=== PATIENT | male | born 1950 | race Caucasian/White ===

== ENCOUNTER 2016-07-01 09:02 | Inpatient (IN) | payer OTHER, MEDICARE ==
[2016-07-01] VITALS (8 sets, daily range): BP systolic 152–215; BP diastolic 64–95; PULSE 63–85; RESP 16–20; TEMP 96.3–97.8; O2SAT 93–100
[~2016-07-01] VITALS: Ht 182.9 cm; Wt 72.0 kg
[2016-07-01] MEDS ORDERED: SODIUM CHLOR 0.9% 1000 ML INJ 1,000 ML IV SCH (09:07)
--- NOTE | 2016-07-01 09:07 | PD ---
HPI Chief Complaint: abdominal pain, vomiting Time Seen by Provider: 09:07 Travel History International Travel<30 days: No Contact w/Intl Traveler<30days: No History of Present Illness HPI 65-year-old male arrives with epigastric abdominal pain and vomiting for one half day. [place] for the same complaint. He vomited en route. He describes a tight,"knot" like sensation in the epigastrium. He has no history of bowel obstruction bowel surgery or GI disease that he is aware. No fever. Emesis is nonbloody. BM normal. PFSH Social History Tobacco Use: No Allergies-Medications (Allergen,Severity, Reaction): Coded Allergies: Sulfa (Verified Allergy, Unknown, Rash, 07/01/16) Reported Meds & Prescriptions Reported Meds & Active Scripts Active Reported Atorvastatin (Atorvastatin Calcium) 80 Mg Tab 80 Mg PO HS Levothyroxine (Levothyroxine Sodium) 125 Mcg Tab 125 Mcg PO DAILY Gabapentin 300 Mg Cap 300 Mg PO BID Furosemide 20 Mg Tab 20 Mg PO DAILY Aspir-81 (Aspirin) 81 Mg Tabdr 81 Mg PO DAILY Novolog Flexpen Inj (Insulin Aspart) 300 Unit/3 Ml Pen 8 Units SQ AC DINNER Novolog Flexpen Inj (Insulin Aspart) 300 Unit/3 Ml Pen 6 Units SQ AC LUNCH Novolog Flexpen Inj (Insulin Aspart) 300 Unit/3 Ml Pen 4 Units SQ AC BREAKFAST Dapsone 25 Mg Tab 25 Mg PO DAILY Cetirizine (Cetirizine HCl) 10 Mg Tab 10 Mg PO DAILY Dapsone 100 Mg Tab 100 Mg PO DAILY Review of Systems Except as stated in HPI: all other systems reviewed are Neg General / Constitutional: No: Fever Gastrointestinal: Positive: Nausea, Vomiting, Abdominal Pain, No: Diarrhea, Hematemesis, Hematochezia, Constipation Physical Exam Narrative GENERAL: 65 yo M, WNWD, NAD SKIN: Warm and dry. HEAD: Atraumatic. Normocephalic. EYES: Pupils equal and round. No scleral icterus. No injection or drainage. ENT: No nasal bleeding or discharge. Mucous membranes pink and moist. NECK: Trachea midline. No JVD. CARDIOVASCULAR: Regular rate and rhythm. RESPIRATORY: No accessory muscle use. Clear to auscultation. Breath sounds equal bilaterally. GASTROINTESTINAL: Soft. No focal TTP. MUSCULOSKELETAL: Extremities without clubbing, cyanosis, or edema. No obvious deformities. NEUROLOGICAL: Awake and alert. No obvious cranial nerve deficits. Motor grossly within normal limits. Five out of 5 muscle strength in the arms and legs. Normal speech. PSYCHIATRIC: Appropriate mood and affect; insight and judgment normal. Data Data Last Documented VS Vital Signs Date Time Temp Pulse Resp B/P Pulse Ox O2 Delivery O2 Flow Rate FiO2 07/01/16 09:30 72 18 176/77 07/01/16 09:07 97.8 Orders Complete Blood Count With Diff (07/01/16 09:07) Comprehensive Metabolic Panel (07/01/16 09:07) Lipase (07/01/16 09:07) Lactic Acid (07/01/16 09:07) Ct Abd/Pel W Iv Contrast(Rout) (07/01/16 09:07) Iv Access Insert/Monitor (07/01/16 09:07) Ecg Monitoring (07/01/16 09:07) Oximetry (07/01/16 09:07) Ondansetron Inj (Zofran Inj) (07/01/16 09:15) Sodium Chlor 0.9% 1000 Ml Inj (Ns 1000 M (07/01/16 09:07) Sodium Chloride 0.9% Flush (Ns Flush) (07/01/16 09:15) Hydromorphone Pf Inj (Dilaudid Pf Inj) (07/01/16 09:15) Al-Mag Hy-Si 40-40-4 Mg/Ml Liq (Mag-Al P (07/01/16 09:15) Lidocaine 2% Viscous (Xylocaine 2% Visco (07/01/16 09:15) Electrocardiogram (07/01/16 ) Iohexol 350 Inj (Omnipaque 350 Inj) (07/01/16 10:52) Hydromorphone Pf Inj (Dilaudid Pf Inj) (07/01/16 11:00) Us Abdomen Gallbladder (07/01/16 ) Piperacil-Tazo 3.375 Gm Premix (Zosyn 3. (07/01/16 11:15) Admit To Inpatient (07/01/16 ) Vital Signs (Adult) Q4H (07/01/16 11:23) Activity Bed Rest (07/01/16 11:23) Diet Npo (07/01/16 Lunch) Sodium Chlor 0.9% 1000 Ml Inj (Ns 1000 M (07/01/16 12:00) Sodium Chloride 0.9% Flush (Ns Flush) (07/01/16 11:30) Sodium Chloride 0.9% Flush (Ns Flush) (07/01/16 21:00) Acetaminophen (Tylenol) (07/01/16 12:00) Ondansetron Inj (Zofran Inj) (07/01/16 11:30) Scd Bilateral/Knee High GUERDA.BID (07/01/16 11:23) Luís Bilateral/Knee High GUERDA.QSHIFT (07/01/16 11:23) Naloxone Inj (Narcan Inj) (07/01/16 11:30) Inpatient Certification (07/01/16 ) Consult General Surgery (07/01/16 ) Piperacil-Tazo 3.375 Gm Premix (Zosyn 3. (07/01/16 17:00) Admit Order (Ed Use Only) (07/01/16 11:56) Labs Laboratory Tests Test 07/01/16 09:10 White Blood Count 8.7 TH/MM3 Red Blood Count 3.26 MIL/MM3 Hemoglobin 10.3 GM/DL Hematocrit 30.8 % Mean Corpuscular Volume 94.5 FL Mean Corpuscular Hemoglobin 31.5 PG Mean Corpuscular Hemoglobin 33.3 % Concent Red Cell Distribution Width 15.0 % Platelet Count 180 TH/MM3 Mean Platelet Volume 7.3 FL Neutrophils (%) (Auto) 88.6 % Lymphocytes (%) (Auto) 6.5 % Monocytes (%) (Auto) 4.2 % Eosinophils (%) (Auto) 0.3 % Basophils (%) (Auto) 0.4 % Neutrophils # (Auto) 7.7 TH/MM3 Lymphocytes # (Auto) 0.6 TH/MM3 Monocytes # (Auto) 0.4 TH/MM3 Eosinophils # (Auto) 0.0 TH/MM3 Basophils # (Auto) 0.0 TH/MM3 CBC Comment DIFF FINAL Differential Comment Sodium Level 141 MEQ/L Potassium Level 4.3 MEQ/L Chloride Level 106 MEQ/L Carbon Dioxide Level 26.6 MEQ/L Anion Gap 8 MEQ/L Blood Urea Nitrogen 31 MG/DL Creatinine 0.87 MG/DL Estimat Glomerular Filtration 88 ML/MIN Rate Random Glucose 211 MG/DL Lactic Acid Level 1.4 mmol/L Calcium Level 8.7 MG/DL Total Bilirubin 1.6 MG/DL Aspartate Amino Transf 25 U/L (AST/SGOT) Alanine Aminotransferase 27 U/L (ALT/SGPT) Alkaline Phosphatase 78 U/L Total Protein 6.5 GM/DL Albumin 3.9 GM/DL Lipase 65 U/L MDM Medical Decision Making Medical Screen Exam Complete: Yes Emergency Medical Condition: Yes Differential Diagnosis Constipation, Gastritis, Acute Cholecystitis, Biliary Colic, Pancreatitis, ANDERSON , Hepatitis, Bowel Obstruction, Cystitis, Mesenteric Ischemia, AAA, Appendicitis , Renal Stone/Hydronephrosis, GERD, perforated viscous Narrative Course 0953 pt resting comfortably; 74, 176/77 EKG: sinus, rate 80, LAFB CBC & BMP Diagram 07/01/16 09:10 Neutrophils 89% T bili 1.6 with LFTs othewise normal Lipase normal Last 24 hours Impressions Abdomen/Pelvis CT 07/01/16 0907 Signed Impressions: Service Date/Time: Friday, July 01, 2016 10:39 - CONCLUSION: 1. Gallbladder is dilated and contains wall thickening and cholelithiasis. Gallbladder sonogram may be warranted. 2. Mild intrahepatic biliary ductal dilatation. 3. Bilateral nonobstructing renal calculi. Thomas García MD 1105AM: Abd soft, c/o pain, 0.5mg Dilaudid ordered, Zosyn ordered, RUQ US ordered, case d/w Dr Bedolla who requests [facility] admission, he'll evaluate 1122AM: d/w Dr Martinez for [facility] 1215PM: resting comfortably on bed Diagnosis Primary Impression: Cholecystitis Admitting Information Admitting Physician Requests: Admit Gerry Main MD July 01, 2016 09:07
[2016-07-01] MEDS ORDERED: ALUMINUM/MAGNESIUM/SIMETH 30 ML CUP PO ONE (09:15)
[2016-07-01] MEDS ORDERED: HYDROmorphone HCL PF 1 MG/ML VIAL IVS ONE (09:15)
[2016-07-01] MEDS ORDERED: SODIUM CHLORIDE 0.9% FLUSH 10 ML FLUSH IV FLUSH PRN ×2 (09:15→11:30)
[2016-07-01] MEDS ORDERED: ONDANSETRON HCL 4 MG/2 ML VIAL IVP ONE (09:15)
[2016-07-01] MEDS ORDERED: LIDOCAINE VISCOUS 2% SOLN 15 ML UDC PO ONE (09:15)
[2016-07-01] MEDS ORDERED: CETI10 PO (09:30)
[2016-07-01] MEDS ORDERED: DAPS5TAB PO (09:30)
[2016-07-01] MEDS ORDERED: NOVOINJ3 SQ ×3 (09:30)
[2016-07-01] MEDS ORDERED: DAPS1TAB2 PO (09:30)
[2016-07-01] MEDS ORDERED: LEVO125T4 PO (09:30)
[2016-07-01] MEDS ORDERED: GABA300C5 PO (09:30)
[2016-07-01] MEDS ORDERED: FURO20TA PO (09:30)
[2016-07-01] MEDS ORDERED: ASPI81TA81 PO (09:30)
[2016-07-01] MEDS ORDERED: ATOR1TAB18 PO (09:30)
[2016-07-01 09:38] LABS: AUTOMATED NEUTROPHIL # 7.7 TH/MM3 (1.8-7.7); BASOPHIL % 0.4 % (0.0-2.0); EOSINOPHIL % 0.3 % (0.0-4.0); HEMATOCRIT 30.8 % (39.0-51.0); HEMO FLAGS DIFF FINAL; LYMPH % 6.5 % (9.0-44.0); LYMPHOCYTE # 0.6 TH/MM3 (1.0-4.8); MEAN CELL VOLUME 94.5 FL (80.0-100.0); MEAN CORPUSCULAR HEMOGLOBIN 31.5 PG (27.0-34.0); MEAN CORPUSCULAR HGB CONC 33.3 % (32.0-36.0); MONO % 4.2 % (0.0-8.0); NEUT % 88.6 % (16.0-70.0); PLATELET COUNT 180 TH/MM3 (150-450); RED BLOOD COUNT 3.26 MIL/MM3 (4.50-5.90); WHITE BLOOD COUNT 8.7 TH/MM3 (4.0-11.0)
[2016-07-01 09:51] LABS: ALT (GPT) 27 U/L (12-78); ANION GAP 8 MEQ/L (5-15); AST (GOT) 25 U/L (15-37); BICARBONATE 26.6 MEQ/L (21.0-32.0); BLOOD UREA NITROGEN 31 MG/DL (7-18); CHLORIDE 106 MEQ/L (98-107); GLOMERULAR FILTRATION RATE 88 ML/MIN (>89); POTASSIUM 4.3 MEQ/L (3.5-5.1); SODIUM (NA) 141 MEQ/L (136-145)
[2016-07-01 09:54] LABS: ALKALINE PHOSPHATASE 78 U/L (45-117); TOTAL BILIRUBIN ADULT 1.6 MG/DL (0.2-1.0)
[2016-07-01] MEDS ORDERED: IOHEXOL 350 MG/ML 10 ML VIAL (for RAD DIAG) IV ONE (10:52)
--- NOTE | 2016-07-01 10:54 | RADRPT ---
EXAM DATE/TIME: 07/01/2016 10:39 [facility] COMPARISON: No previous studies available for comparison. INDICATIONS : Epigastric pain for 1 and a half days. IV CONTRAST: 93 cc Omnipaque 350 (iohexol) IV ORAL CONTRAST: No oral contrast ingested. RADIATION DOSE: 9.96 CTDIvol (mGy) MEDICAL HISTORY : Diabetes mellitus type 1. vomiting SURGICAL HISTORY : ENCOUNTER: Initial ACUITY: 1 day PAIN SCALE: 3/10 LOCATION: TECHNIQUE: Volumetric scanning of the abdomen and pelvis was performed. Using automated exposure control and ad justment of the mA and/or kV according to patient size, radiation dose was kept as low as reasonably achievable to obtain optimal diagnostic quality images. FINDINGS: LOWER LUNGS: The visualized lower lungs are clear. LIVER: Homogeneous density without lesion. There is mild dilation of the biliary tree. Gallbladder is dilat ed with some slight wall thickening. Multiple layering gallstones. SPLEEN: Normal size without lesion. PANCREAS: Within normal limits. KIDNEYS: Normal in size and shape. There is no mass or hydronephrosis. 7 mm lower pole calculus in the right kidney and 2 mm calculus in the lower pole left kidney. ADRENAL GLANDS: Within normal limits. VASCULAR: There is no aortic aneurysm. BOWEL/MESENTERY: The stomach, small bowel, and colon demonstrate no acute abnormality. There is no free intraperitone al air or fluid. ABDOMINAL WALL: Within normal limits. RETROPERITONEUM: There is no lymphadenopathy. BLADDER: No wall thickening or mass. REPRODUCTIVE: Within normal limits. INGUINAL: There is no lymphadenopathy or hernia. MUSCULOSKELETAL: Within normal limits for patient age. CONCLUSION: 1. Gallbladder is dilated and contains wall thickening and cholelithiasis. Gallbladder sonogram may b e warranted. 2. Mild intrahepatic biliary ductal dilatation. 3. Bilateral nonobstructing renal calculi. Thomas García MD on July 01, 2016 at 10:50 Board Certified Radiologist. This report was verified electronically.
[2016-07-01] MEDS ORDERED: HYDROmorphone HCL PF 1 MG/ML VIAL IV PUSH ONE (11:00)
[2016-07-01] MEDS ORDERED: PIPERACIL-TAZO 3.375 GM PREMIX 50 ML IV ONE (11:15)
[2016-07-01] MEDS ORDERED: NALOXONE HCL 0.4 MG/ML AMP IV PRN (11:30)
--- NOTE | 2016-07-01 12:23 | RADRPT ---
EXAM DATE/TIME: 07/01/2016 11:37 [facility] COMPARISON: CT ABDOMEN & PELVIS W CONTRAST, July 01, 2016, 10:39. INDICATIONS : Right upper quadrant pain. MEDICAL HISTORY : Hypercholesterolemia. Thyroid disease. Diabetes. Abdominal pain. Vomiting. SURGICAL HISTORY : Right and left shoulder. Carpal tunnel release. ENCOUNTER: Initial ACUITY: 1 day PAIN SCORE: 0/10 LOCATION: Right upper quadrant MEASUREMENTS: LIVER: 13.3 cm length COMMON DUCT: 5 mm RIGHT KIDNEY: 11.1 x 4.7 x 4.6 cm FINDINGS: LIVER: Normal echotexture with mild ductal dilatation. COMMON DUCT: No intraluminal mass or stone visualized. GALLBLADDER: contains gallstones. Gallbladder is distended . No overt wall thickening or p ericholecystic fluid. PANCREAS: The visualized portions are within normal limits. RIGHT KIDNEY: No evidence of hydronephrosis, stone, or mass. CONCLUSION: 1. Distended gallbladder and cholelithiasis. 2. Mild intrahepatic biliary ductal dilatation. Thomas García MD on July 01, 2016 at 12:18 Board Certified Radiologist. This report was verified electronically.
[2016-07-01] MEDS ORDERED: LABETALOL HCL 100 MG/20 ML VIAL IV PUSH ONE (13:00)
[2016-07-01] MEDS ORDERED: hydrALAZINE HCL 20 MG/ML VIAL IV PUSH PRN (13:00)
[2016-07-01] MEDS ORDERED: ENALAPRILAT 1.25 MG/ML VIAL IV PUSH PRN (13:00)
[2016-07-01] MEDS: SODIUM CHLOR 0.9% 1000 ML INJ 1,000 ML IV SCH (13:08)
[2016-07-01] MEDS: HYDROmorphone HCL PF 2 MG/ML VIAL IV PUSH PRN ×2 (14:57→21:12)
[2016-07-01] MEDS: ONDANSETRON HCL 4 MG/2 ML VIAL IVP PRN (14:58)
--- NOTE | 2016-07-01 15:17 | PD.CONS ---
HPI Service General Surgery Consult Requested By Dr. Fiore Reason for Consult Possible cholecystitis Primary Care Physician [facility] History of Present Illness 65-year-old male sent from the [place] clinic for severe abdominal pain. He developed some pain to mornings ago which then resolved. Last night he again had pain in the epigastrium and knot like sensation which was severe and persistent. He had nausea and emesis. He presented to the [place] clinic today and was told to come to the hospital. He has never had any similar pain in the past. He has not had anything to eat or drink since last night. Notably his blood pressure has been very high in the emergency department requiring multiple antihypertensives and also pain medication. Review of Systems Constitutional: DENIES: Fever, Chills Ears, nose, mouth, throat: DENIES: Throat pain, Ear Pain Cardiovascular: DENIES: Chest pain, Syncope Gastrointestinal: COMPLAINS OF: Abdominal pain, Nausea, Vomiting Integumentary: DENIES: Pruritus, Rash Neurologic: DENIES: Localized weakness, Paresthesias Past Family Social History Past Medical History Diabetes mellitus insulin-dependent Hyperlipidemia Past Surgical History None Reported Medications Reported Meds & Active Scripts Active Reported Atorvastatin (Atorvastatin Calcium) 80 Mg Tab 80 Mg PO HS Levothyroxine (Levothyroxine Sodium) 125 Mcg Tab 125 Mcg PO DAILY Gabapentin 300 Mg Cap 300 Mg PO BID Furosemide 20 Mg Tab 20 Mg PO DAILY Aspir-81 (Aspirin) 81 Mg Tabdr 81 Mg PO DAILY Novolog Flexpen Inj (Insulin Aspart) 300 Unit/3 Ml Pen 8 Units SQ AC DINNER Novolog Flexpen Inj (Insulin Aspart) 300 Unit/3 Ml Pen 6 Units SQ AC LUNCH Novolog Flexpen Inj (Insulin Aspart) 300 Unit/3 Ml Pen 4 Units SQ AC BREAKFAST Dapsone 25 Mg Tab 25 Mg PO DAILY Cetirizine (Cetirizine HCl) 10 Mg Tab 10 Mg PO DAILY Dapsone 100 Mg Tab 100 Mg PO DAILY Allergies: Coded Allergies: Sulfa (Verified Allergy, Unknown, Rash, 07/01/16) Active Ordered Medications Current Medications Medications (Trade) Dose Ordered Sig/Izabel Route Start Time Stop Time Status Last Admin Sodium Chloride 2 ml 2 ml UNSCH PRN IV FLUSH 07/01/16 09:15 (NS 1000 ml Inj) 1,000 ml @ 70 mls/hr [id number] IV 07/01/16 12:00 07/01/16 13:08 (NS Flush) 2 ml UNSCH PRN IV FLUSH 07/01/16 11:30 (NS Flush) 2 ml BID IV FLUSH 07/01/16 21:00 (Tylenol) 650 mg Q4H PRN PO 07/01/16 12:00 (Zofran Inj) 4 mg Q6H PRN IVP 07/01/16 11:30 07/01/16 14:58 Naloxone HCl 0.4 mg 0.4 mg UNSCH PRN IV 07/01/16 11:30 (Zosyn 3.375 Gm Premix) 50 ml @ 100 mls/hr Q6H IV 07/01/16 17:00 (Vasotec Inj) 1.25 mg Q6H PRN IV PUSH 07/01/16 13:00 07/01/16 13:47 (Apresoline Inj) 20 mg Q4H PRN IV PUSH 07/01/16 13:00 (Dilaudid Pf Inj) 2 mg Q3HR PRN IV PUSH 07/01/16 15:00 07/01/16 14:57 Family History Noncontributory Social History He is a permanently disabled . No tobacco use. Physical Exam Vital Signs Vital Signs Date Time Temp Pulse Resp B/P Pulse Ox O2 Delivery O2 Flow Rate FiO2 07/01/16 13:47 68 18 203/79 97 Room Air 07/01/16 12:51 74 18 215/86 97 07/01/16 09:30 72 18 176/77 07/01/16 09:07 97.8 85 18 214/95 Physical Exam GENERAL: Awake and alert. Clearly in pain. Cooperative. HEAD: Normocephalic. Atraumatic. EYES: Pupils equal round and reactive to light bilaterally. No scleral icterus. CHEST: Lungs clear to auscultation bilaterally with no wheezing or rhonchi. No respiratory distress. CARDIOVASCULAR: Regular rate and rhythm. ABDOMEN: Nondistended. Overall soft and nontender without any localized tenderness no rebound or guarding EXTREMITIES: No cyanosis or edema. SKIN: Warm, dry, nonjaundiced. Laboratory Laboratory Tests Test 07/01/16 09:10 White Blood Count 8.7 Red Blood Count 3.26 Hemoglobin 10.3 Hematocrit 30.8 Mean Corpuscular Volume 94.5 Mean Corpuscular Hemoglobin 31.5 Mean Corpuscular Hemoglobin 33.3 Concent Red Cell Distribution Width 15.0 Platelet Count 180 Mean Platelet Volume 7.3 Neutrophils (%) (Auto) 88.6 Lymphocytes (%) (Auto) 6.5 Monocytes (%) (Auto) 4.2 Eosinophils (%) (Auto) 0.3 Basophils (%) (Auto) 0.4 Neutrophils # (Auto) 7.7 Lymphocytes # (Auto) 0.6 Monocytes # (Auto) 0.4 Eosinophils # (Auto) 0.0 Basophils # (Auto) 0.0 CBC Comment DIFF FINAL Differential Comment Sodium Level 141 Potassium Level 4.3 Chloride Level 106 Carbon Dioxide Level 26.6 Anion Gap 8 Blood Urea Nitrogen 31 Creatinine 0.87 Estimat Glomerular Filtration 88 Rate Random Glucose 211 Lactic Acid Level 1.4 Calcium Level 8.7 Total Bilirubin 1.6 Aspartate Amino Transf 25 (AST/SGOT) Alanine Aminotransferase 27 (ALT/SGPT) Alkaline Phosphatase 78 Total Protein 6.5 Albumin 3.9 Lipase 65 Result Diagram: 07/01/16 0910 07/01/16 0910 Imaging Last Impressions Abdomen/Pelvis CT 07/01/16 0907 Signed Impressions: Service Date/Time: Friday, July 01, 2016 10:39 - CONCLUSION: 1. Gallbladder is dilated and contains wall thickening and cholelithiasis. Gallbladder sonogram may be warranted. 2. Mild intrahepatic biliary ductal dilatation. 3. Bilateral nonobstructing renal calculi. Thomas García MD Gall Bladder Ultrasound 07/01/16 0000 Signed Impressions: Service Date/Time: Friday, July 01, 2016 11:37 - CONCLUSION: 1. Distended gallbladder and cholelithiasis. 2. Mild intrahepatic biliary ductal dilatation. Thomas García MD Assessment and Plan Assessment and Plan 65-year-old male with probable acute cholecystitis. He does not have much pain on exam but otherwise his history and physical and imaging is consistent with cholecystitis. I would recommend to proceed with laparoscopic possible open cholecystectomy in the next day or 2. Continue antibiotics and IV pain medication until that time. I discussed the surgery details and risks with the patient and he desires to proceed. Graeme,Ozzy FREGOSO July 01, 2016 15:17
--- NOTE | 2016-07-01 15:26 | EKG ---
Date Performed: 07/01/2016 Time Performed: 09:15:00 PTAGE: 65 years EKG: Sinus rhythm LEFT ANTERIOR FASCICULAR BLOCK ABNORMAL ECG NO PREVIOUS TRACING DOCTOR: Gabby Stout Interpretating Date/Time 07/01/2016 15:23:41
--- NOTE | 2016-07-01 16:34 | HHI.HP ---
[facility] [place] [facility] Physician [facility] Admission Diagnosis Acute Anemia Diagnoses: Chief Complaint: Abdominal pain and nausea vomiting Travel History International Travel<30 Days: No Contact w/Intl Traveler <30 Da: No Traveled to Known Affected Are: No History of Present Illness This is a 65-year-old male past no history of type 1 diabetes insulin-dependent and hyperlipidemia who presented with epigastric pain and nausea vomiting. Patient stated that epigastric pain started on Thursday in which it lasted for 5 hours and resolved on its own. He stated that he did not think it was associated with food at all. He does stated last night he woke up in the middle night with severe abdominal pain. Then at 5:00 this morning he started vomiting yellow substance. Patient stated that he had 2 slices of pizza yesterday. Patient has never had this pain before. Deny any fevers or chills. Patient had EGD/colonoscopy about 3 years ago he stated that it was normal. Noted that patient is on Lasix I asked patient if he has history of congestive heart failure. Patient stated he has no history of congestive heart failure and he also denies any history of cardiovascular disease. Patient stated that he is able to walk for many miles without any shortness of breathing, chest pain, palpitation or lightheadedness or dizziness. He stated that he's been under general anesthesia in the past with no complications. Review of Systems Constitutional: DENIES: Diaphoretic episodes, Fatigue, Fever, Weight gain, Weight loss, Chills, Dizziness, Change in appetite, Night Sweats Endocrine: DENIES: Heat/cold intolerance, Polydipsia, Polyuria, Polyphagia Eyes: DENIES: Blurred vision, Diplopia, Eye inflammation, Eye pain, Vision loss , Photosensitivity, Double Vision Ears, nose, mouth, throat: DENIES: Tinnitus, Hearing loss, Vertigo, Nasal discharge, Oral lesions, Throat pain, Hoarseness, Ear Pain, Running Nose, Epistaxis, Sinus Pain, Toothache, Odynophagia Respiratory: DENIES: Apneas, Cough, Snoring, Wheezing, Hemoptysis, Sputum production, Shortness of breath Cardiovascular: DENIES: Chest pain, Palpitations, Syncope, Dyspnea on Exertion , PND, Lower Extremity Edema, Orthopnea, Claudication Gastrointestinal: COMPLAINS OF: Abdominal pain, Nausea, Vomiting, DENIES: Black stools, Bloody stools, Constipation, Diarrhea, Difficulty Swallowing, Anorexia Genitourinary: DENIES: Sexual dysfunction, Urinary frequency, Urinary incontinence, Urgency, Hematuria, Dysuria, Nocturia, Penile Discharge, Testicular Pain, Testicular Swelling Musculoskeletal: DENIES: Joint pain, Muscle aches, Stiffness, Joint Swelling, Back pain, Neck pain Integumentary: DENIES: Abnormal pigmentation, Nail changes, Pruritus, Rash Hematologic/lymphatic: DENIES: Bruising, Lymphadenopathy Immunologic/allergic: DENIES: Eczema, Urticaria Neurologic: DENIES: Abnormal gait, Headache, Localized weakness, Paresthesias, Seizures, Speech Problems, Tremor, Poor Balance Psychiatric: DENIES: Anxiety, Confusion, Mood changes, Depression, Hallucinations, Agitation, Suicidal Ideation, Homicidal Ideation, Delusions Past Family Social History Past Medical History Type 1 diabetes insulin-dependent Gluten intolerance Hyperlipidemia Carpal tunnel syndrome Past Surgical History Carpal tunnel release Right shoulder surgery Eyelid surgery Reported Medications Reported Meds & Active Scripts Active Reported Atorvastatin (Atorvastatin Calcium) 80 Mg Tab 80 Mg PO HS Levothyroxine (Levothyroxine Sodium) 125 Mcg Tab 125 Mcg PO DAILY Gabapentin 300 Mg Cap 300 Mg PO BID Furosemide 20 Mg Tab 20 Mg PO DAILY Aspir-81 (Aspirin) 81 Mg Tabdr 81 Mg PO DAILY Novolog Flexpen Inj (Insulin Aspart) 300 Unit/3 Ml Pen 8 Units SQ AC DINNER Novolog Flexpen Inj (Insulin Aspart) 300 Unit/3 Ml Pen 6 Units SQ AC LUNCH Novolog Flexpen Inj (Insulin Aspart) 300 Unit/3 Ml Pen 4 Units SQ AC BREAKFAST Dapsone 25 Mg Tab 25 Mg PO DAILY Cetirizine (Cetirizine HCl) 10 Mg Tab 10 Mg PO DAILY Dapsone 100 Mg Tab 100 Mg PO DAILY Allergies: Coded Allergies: Sulfa (Verified Allergy, Unknown, Rash, 07/01/16) Active Ordered Medications Current Medications Ondansetron HCl 4 mg 4 mg ONCE ONCE IVP Last administered on 07/01/16t 09:19; Start 07/01/16 at 09:15; Stop 07/01/16 at 09:16; Status DC Sodium Chloride (NS 1000 ml Inj) 1,000 ml @ 1,000 mls/hr Q1H IV Last administered on 07/01/16 09:20; Start 07/01/16 at 09:07; Stop 07/01/16 at 10:06; Status DC Sodium Chloride (NS Flush) 2 ml UNSCH PRN IV FLUSH FLUSH AFTER USING IV ACCESS ; Start 07/01/16 at 09:15 Hydromorphone HCl (Dilaudid Pf Inj) 1 mg ONCE ONCE IVS Last administered on 09:19; Start 07/01/16 at 09:15; Stop 07/01/16 at 09:16; Status DC Al Hydrox/Mg Hydrox/Simethicone (Mag-Al Plus Susp Liq) 30 ml ONCE ONCE PO Last administered on 07/01/16 09:20; Start 07/01/16 at 09:15; Stop 07/01/16 at 09: 16; Status DC Lidocaine HCl (Xylocaine 2% Viscous) 15 ml ONCE ONCE PO Last administered on 09:20; Start 07/01/16 at 09:15; Stop 07/01/16 at 09:16; Status DC Iohexol (Omnipaque 350 Inj) 93 ml STK-MED ONCE IV Last administered on 10:52; Start 07/01/16 at 10:52; Stop 07/01/16 at 10:53; Status DC Hydromorphone HCl 0.5 mg 0.5 mg ONCE ONCE IV PUSH Last administered on 11:09; Start 07/01/16 at 11:00; Stop 07/01/16 at 11:02; Status DC Piperacillin Sod/ Tazobactam Sod 50 ml @ 100 mls/hr ONCE ONCE IV Last administered on 07/01/16 11:27; Start 07/01/16 at 11:15; Stop 07/01/16 at 11:44; Status DC Sodium Chloride (NS 1000 ml Inj) 1,000 ml @ 70 mls/hr [id number] IV Last administered on 07/01/16 13:08; Start 07/01/16 at 12:00 Sodium Chloride (NS Flush) 2 ml UNSCH PRN IV FLUSH FLUSH AFTER USING IV ACCESS ; Start 07/01/16 at 11:30 Sodium Chloride (NS Flush) 2 ml BID IV FLUSH ; Start 07/01/16 at 21:00 Acetaminophen (Tylenol) 650 mg Q4H PRN PO TEMP > 100.4; Start 07/01/16 at 12:00 Ondansetron HCl (Zofran Inj) 4 mg Q6H PRN IVP NAUSEA OR VOMITING Last administered on 07/01/16 14:58; Start 07/01/16 at 11:30 Naloxone HCl 0.4 mg 0.4 mg UNSCH PRN IV SEE LABEL COMMENTS; Start 07/01/16 at 11 :30 Piperacillin Sod/ Tazobactam Sod (Zosyn 3.375 Gm Premix) 50 ml @ 100 mls/hr Q6H IV ; Start 07/01/16 at 17:00 Labetalol HCl (Trandate Inj) 20 mg ONCE ONCE IV PUSH Last administered on 13:08; Start 07/01/16 at 13:00; Stop 07/01/16 at 13:01; Status DC Enalaprilat (Vasotec Inj) 1.25 mg Q6H PRN IV PUSH SBP>180, DBP>110 Last administered on 07/01/16 13:47; Start 07/01/16 at 13:00 Hydralazine HCl (Apresoline Inj) 20 mg Q4H PRN IV PUSH SYS BP GREATER THAN 180 MMHG; Start 07/01/16 at 13:00 Hydromorphone HCl (Dilaudid Pf Inj) 2 mg Q3HR PRN IV PUSH PAIN 5-10 Last administered on 07/01/16 14:57; Start 07/01/16 at 15:00 Family History Father had history of congestive heart failure. Mother had a history of unknown cancer. Social History Patient was at home by himself. Denying tobacco use. Socially drinks alcohol. Physical Exam Vital Signs Vital Signs Date Time Temp Pulse Resp B/P Pulse Ox O2 Delivery O2 Flow Rate FiO2 07/01/16 16:00 96.3 63 20 179/66 93 07/01/16 15:13 68 16 166/69 100 07/01/16 13:47 68 18 203/79 97 Room Air 07/01/16 12:51 74 18 215/86 97 07/01/16 09:30 72 18 176/77 07/01/16 09:07 97.8 85 18 214/95 Physical Exam GENERAL: This is a well-nourished, well-developed patient, in no apparent distress. SKIN: No rashes, ecchymoses or lesions. Cool and dry. HEAD: Atraumatic. Normocephalic. No temporal or scalp tenderness. EYES: Pupils equal round and reactive. Extraocular motions intact. No scleral icterus. No injection or drainage. ENT: Nose without bleeding, purulent drainage or septal hematoma. Throat without erythema, tonsillar hypertrophy or exudate. Uvula midline. Airway patent. NECK: Trachea midline. No JVD or lymphadenopathy. Supple, nontender, no meningeal signs. CARDIOVASCULAR: Regular rate and rhythm without murmurs, gallops, or rubs. RESPIRATORY: Clear to auscultation. Breath sounds equal bilaterally. No wheezes , rales, or rhonchi. GASTROINTESTINAL: Abdomen soft, non-tender, nondistended. No hepato-splenomegaly , or palpable masses. No guarding. MUSCULOSKELETAL: Extremities without clubbing, cyanosis, or edema. No joint tenderness, effusion, or edema noted. No calf tenderness. Negative Homans sign bilaterally. NEUROLOGICAL: Awake and alert. Cranial nerves II through XII intact. Motor and sensory grossly within normal limits. Five out of 5 muscle strength in all muscle groups. Normal speech. Laboratory Laboratory Tests Test 07/01/16 09:10 White Blood Count 8.7 Red Blood Count 3.26 Hemoglobin 10.3 Hematocrit 30.8 Mean Corpuscular Volume 94.5 Mean Corpuscular Hemoglobin 31.5 Mean Corpuscular Hemoglobin 33.3 Concent Red Cell Distribution Width 15.0 Platelet Count 180 Mean Platelet Volume 7.3 Neutrophils (%) (Auto) 88.6 Lymphocytes (%) (Auto) 6.5 Monocytes (%) (Auto) 4.2 Eosinophils (%) (Auto) 0.3 Basophils (%) (Auto) 0.4 Neutrophils # (Auto) 7.7 Lymphocytes # (Auto) 0.6 Monocytes # (Auto) 0.4 Eosinophils # (Auto) 0.0 Basophils # (Auto) 0.0 CBC Comment DIFF FINAL Differential Comment Sodium Level 141 Potassium Level 4.3 Chloride Level 106 Carbon Dioxide Level 26.6 Anion Gap 8 Blood Urea Nitrogen 31 Creatinine 0.87 Estimat Glomerular Filtration 88 Rate Random Glucose 211 Lactic Acid Level 1.4 Calcium Level 8.7 Total Bilirubin 1.6 Aspartate Amino Transf 25 (AST/SGOT) Alanine Aminotransferase 27 (ALT/SGPT) Alkaline Phosphatase 78 Total Protein 6.5 Albumin 3.9 Lipase 65 Result Diagram: 07/01/16 0910 07/01/1610 Imaging Last Impressions Abdomen/Pelvis CT 07/01/16 0907 Signed Impressions: Service Date/Time: Friday, July 01, 2016 10:39 - CONCLUSION: 1. Gallbladder is dilated and contains wall thickening and cholelithiasis. Gallbladder sonogram may be warranted. 2. Mild intrahepatic biliary ductal dilatation. 3. Bilateral nonobstructing renal calculi. Thomas García MD Gall Bladder Ultrasound 07/01/16 0000 Signed Impressions: Service Date/Time: Friday, July 01, 2016 11:37 - CONCLUSION: 1. Distended gallbladder and cholelithiasis. 2. Mild intrahepatic biliary ductal dilatation. Thomas García MD Assessment and Plan Assessment and Plan 65-year-old male presented with abdominal pain and nausea/ vomiting Abdominal pain/nausea/vomiting -CT scan the abdomen/pelvis and abdominal ultrasound suggests acute cholecystitis. -General Surgeon already consulted and recommended a laparoscopic cholecystectomy which will be done in 1-2 days. -Patient was given dose of Zosyn in the emergency department. Will continue with Zosyn. -We'll continue with supportive care with IV fluids, antiemetics, and pain control. Elevated blood pressure -Patient has no history of hypertension. Elevated blood pressure most likely due to pain. He was given PRN blood pressure medication in the ED which did not help his blood pressure. Patient then had better pain control in which his blood pressure improved drastically. -We'll continue to monitor. Type 1 diabetes, bilateral carpal tunnel syndrome -Will hold home dosage of insulin since patient is having emesis and decreased by mouth intake. -Will put him on insulin sliding scope. -Otherwise will resume home medication. -I am unsure why patient is on Lasix when he doesn't have any lower extremity edema or has no history of CHF. Will hold Lasix due to emesis and concerning for dehydration. Surgical Clearance -EKG showed sinus rhythm with no ST elevation or depression. Shows fascicular block. No prior EKG comparison. -Patient is asymptomatic and able to walk many miles without any symptoms. -He did well prior under general anesthesia. -Patient is medically clear for surgery. Code Status full Discussed Condition With patient Physician Certification 2 Midnight Certification Type: Admission for Inpatient Services Order for Inpatient Services The services are ordered in accordance with Medicare regulations or non- Medicare payer requirements, as applicable. In the case of services not specified as inpatient-only, they are appropriately provided as inpatient services in accordance with the 2-midnight benchmark. Estimated LOS (days): 2 2 days is the estimated time the patient will need to remain in the hospital, assuming treatment plan goals are met and no additional complications. Post-Hospital Plan: Temi Jain MD July 01, 2016 16:34
[2016-07-01] MEDS ORDERED: GLUCAGON 1 MG/ML VIAL OTHER PRN (16:45)
[2016-07-01] MEDS ORDERED: DEXTROSE 50% IN WATER 50 ML VIAL(D50) IV PUSH PRN (16:45)
[2016-07-01] MEDS: PIPERACIL-TAZO 3.375 GM PREMIX 50 ML IV SCH (18:00)
[2016-07-01 19:43] LABS: ANION GAP 9 MEQ/L (5-15); BICARBONATE 25.7 MEQ/L (21.0-32.0); BLOOD UREA NITROGEN 26 MG/DL (7-18); CHLORIDE 105 MEQ/L (98-107); GLOMERULAR FILTRATION RATE 80 ML/MIN (>89); POTASSIUM 4.4 MEQ/L (3.5-5.1); SODIUM (NA) 140 MEQ/L (136-145)
[2016-07-01] MEDS: SODIUM CHLORIDE 0.9% FLUSH 10 ML FLUSH IV FLUSH SCH (21:00)
[2016-07-01] MEDS: INSULIN ASPART SUPPLEMENTAL SCALE SQ SCH (21:13)
[2016-07-01] MEDS: GABAPENTIN 300 MG CAP PO SCH (21:14)
[2016-07-01] MEDS: ATORVASTATIN 80 MG TAB PO SCH (21:14)
[2016-07-02] VITALS: BP 136/63; PULSE 74; RESP 18; TEMP 97.9; O2SAT 99
[2016-07-02 00:20] LABS: MRSA PCR POSITIVE (NEGATIVE); STAPH AUREUS PCR POSITIVE (NEGATIVE)
[2016-07-02] MEDS: PIPERACIL-TAZO 3.375 GM PREMIX 50 ML IV SCH ×3 (02:39→11:28)
[2016-07-02] MEDS: HYDROmorphone HCL PF 2 MG/ML VIAL IV PUSH PRN (02:39)
[2016-07-02] MEDS: ONDANSETRON HCL 4 MG/2 ML VIAL IVP PRN ×2 (02:40→08:03)
[2016-07-02] MEDS: SODIUM CHLOR 0.9% 1000 ML INJ 1,000 ML IV SCH (02:40)
[2016-07-02] MEDS: LEVOTHYROXINE SODIUM 125 MCG TAB PO SCH (05:09)
[2016-07-02] MEDS: INSULIN ASPART SUPPLEMENTAL SCALE SQ SCH ×4 (05:14→22:16)
[2016-07-02 06:00] VITALS: BP 134/58; PULSE 67; RESP 18; TEMP 97.5; O2SAT 96
[2016-07-02 07:50] VITALS: BP 156/67; PULSE 62; RESP 20; TEMP 97.2; O2SAT 92
[2016-07-02 07:56] LABS: HEMATOCRIT 29.9 % (39.0-51.0); MEAN CELL VOLUME 96.1 FL (80.0-100.0); MEAN CORPUSCULAR HEMOGLOBIN 31.4 PG (27.0-34.0); MEAN CORPUSCULAR HGB CONC 32.7 % (32.0-36.0); PLATELET COUNT 183 TH/MM3 (150-450); RED BLOOD COUNT 3.11 MIL/MM3 (4.50-5.90); RED CELL DISTRIBUTION WIDTH 15.3 % (11.6-17.2); WHITE BLOOD COUNT 11.7 TH/MM3 (4.0-11.0)
[2016-07-02 08:07] LABS: REVIEW FLAG FINAL
[2016-07-02] MEDS: DAPSONE 100 MG TAB PO SCH (08:13)
[2016-07-02] MEDS: GABAPENTIN 300 MG CAP PO SCH ×2 (08:13→22:09)
[2016-07-02] MEDS: CETIRIZINE HCL 10 MG TAB PO SCH (08:13)
[2016-07-02] MEDS: DAPSONE 25 MG TAB PO SCH (08:13)
[2016-07-02] MEDS: SODIUM CHLORIDE 0.9% FLUSH 10 ML FLUSH IV FLUSH SCH ×2 (08:22→22:16)
[2016-07-02] MEDS: ASPIRIN EC 81 MG TABEC PO SCH (09:00)
[2016-07-02] MEDS ORDERED: PNEUMOCOCCAL POLYVALENT INJ 25 MCG/0.5 ML SYR IM ONE (10:00)
[2016-07-02] MEDS ORDERED: BUPIVACAINE/EPINEPHRINE 0.25% PF 30 ML VIAL ONE ×3 (10:57→10:58)
[2016-07-02] MEDS ORDERED: BUPIVACAINE/EPINEPHRINE 0.25% 50 ML VIAL ONE (10:59)
[2016-07-02] MEDS ORDERED: ACETAMINOPHEN 1000 MG/100 ML VIAL IV ONE ×2 (11:19→11:50)
[2016-07-02] MEDS ORDERED: FAMOTIDINE 20 MG/2 ML VIAL ONE (11:20)
--- NOTE | 2016-07-02 11:24 | HHI.PR ---
Subjective Remarks Follow-up for abdominal pain and nausea vomiting. Patient stated he had one episodes of emesis last night. Otherwise he stated he is doing a lot better. Pain is better controlled. Patient has no other complaints. Objective Vitals Vital Signs Date Time Temp Pulse Resp B/P Pulse Ox O2 Delivery O2 Flow Rate FiO2 07/02/16 07:50 97.2 62 20 156/67 92 07/02/16 06:00 97.5 67 18 134/58 96 07/02/16 00:00 97.9 74 18 136/63 99 07/01/16 20:00 97.2 79 18 152/65 96 07/01/16 18:30 158/64 07/01/16 16:00 96.3 63 20 179/66 93 07/01/16 15:13 68 16 166/69 100 07/01/16 13:47 68 18 203/79 97 Room Air 07/01/16 12:51 74 18 215/86 97 Result Diagram: 07/02/16 0722 07/01/16 1900 Objective Remarks GENERAL: in NAD SKIN: Warm and dry. HEAD: Normocephalic. EYES: No scleral icterus. No injection or drainage. NECK: Supple, trachea midline. No JVD or lymphadenopathy. CARDIOVASCULAR: Regular rate and rhythm without murmurs, gallops, or rubs. RESPIRATORY: Breath sounds equal bilaterally. No accessory muscle use. GASTROINTESTINAL: Abdomen soft, non-tender, nondistended. Medications and IVs Current Medications Ondansetron HCl 4 mg 4 mg ONCE ONCE IVP Last administered on 07/01/16 09:19; Start 07/01/16 at 09:15; Stop 07/01/16 at 09:16; Status DC Sodium Chloride (NS 1000 ml Inj) 1,000 ml @ 1,000 mls/hr Q1H IV Last administered on 07/01/16 09:20; Start 07/01/16 at 09:07; Stop 07/01/16 at 10:06; Status DC Sodium Chloride (NS Flush) 2 ml UNSCH PRN IV FLUSH FLUSH AFTER USING IV ACCESS ; Start 07/01/16 at 09:15; Stop 07/01/16 at 17:02; Status DC Hydromorphone HCl (Dilaudid Pf Inj) 1 mg ONCE ONCE IVS Last administered on 09:19; Start 07/01/16 at 09:15; Stop 07/01/16 at 09:16; Status DC Al Hydrox/Mg Hydrox/Simethicone (Mag-Al Plus Susp Liq) 30 ml ONCE ONCE PO Last administered on 07/01/16 09:20; Start 07/01/16 at 09:15; Stop 07/01/16 at 09: 16; Status DC Lidocaine HCl (Xylocaine 2% Viscous) 15 ml ONCE ONCE PO Last administered on 09:20; Start 07/01/16 at 09:15; Stop 07/01/16 at 09:16; Status DC Iohexol (Omnipaque 350 Inj) 93 ml STK-MED ONCE IV Last administered on 10:52; Start 07/01/16 at 10:52; Stop 07/01/16 at 10:53; Status DC Hydromorphone HCl 0.5 mg 0.5 mg ONCE ONCE IV PUSH Last administered on 11:09; Start 07/01/16 at 11:00; Stop 07/01/16 at 11:02; Status DC Piperacillin Sod/ Tazobactam Sod 50 ml @ 100 mls/hr ONCE ONCE IV Last administered on 07/01/16 11:27; Start 07/01/16 at 11:15; Stop 07/01/16 at 11:44; Status DC Sodium Chloride (NS 1000 ml Inj) 1,000 ml @ 100 mls/hr Q10H IV Last administered on 07/02/16 02:40; Start 07/01/16 at 12:00 Sodium Chloride (NS Flush) 2 ml UNSCH PRN IV FLUSH FLUSH AFTER USING IV ACCESS ; Start 07/01/16 at 11:30 Sodium Chloride (NS Flush) 2 ml BID IV FLUSH Last administered on 07/02/16 08: 22; Start 07/01/16 at 21:00 Acetaminophen (Tylenol) 650 mg Q4H PRN PO TEMP > 100.4; Start 07/01/16 at 12:00 Ondansetron HCl (Zofran Inj) 4 mg Q6H PRN IVP NAUSEA OR VOMITING Last administered on 07/02/16 08:03; Start 07/01/16 at 11:30 Naloxone HCl 0.4 mg 0.4 mg UNSCH PRN IV SEE LABEL COMMENTS; Start 07/01/16 at 11 :30 Piperacillin Sod/ Tazobactam Sod (Zosyn 3.375 Gm Premix) 50 ml @ 100 mls/hr Q6H IV Last administered on 07/02/16 05:09; Start 07/01/16 at 17:00 Labetalol HCl (Trandate Inj) 20 mg ONCE ONCE IV PUSH Last administered on 13:08; Start 07/01/16 at 13:00; Stop 07/01/16 at 13:01; Status DC Enalaprilat (Vasotec Inj) 1.25 mg Q6H PRN IV PUSH SBP>180, DBP>110 Last administered on 07/01/16 13:47; Start 07/01/16 at 13:00 Hydralazine HCl (Apresoline Inj) 20 mg Q4H PRN IV PUSH SYS BP GREATER THAN 180 MMHG; Start 07/01/16 at 13:00 Hydromorphone HCl (Dilaudid Pf Inj) 2 mg Q3HR PRN IV PUSH PAIN 5-10 Last administered on 07/02/16 02:39; Start 07/01/16 at 15:00 Aspirin (Ecotrin Ec) 81 mg DAILY PO ; Start 07/02/16 at 09:00 Atorvastatin Calcium (Lipitor) 80 mg HS PO Last administered on 07/01/16 21:14 ; Start 07/01/16 at 21:00 Cetirizine HCl (ZyrTEC) 10 mg DAILY PO Last administered on 07/02/16 08:13; Start 07/02/16 at 09:00 Dapsone (Dapsone) 25 mg DAILY PO Last administered on 07/02/16 08:13; Start at 09:00 Dapsone (Dapsone) 100 mg DAILY PO Last administered on 07/02/16 08:13; Start 07/02/16 at 09:00 Gabapentin (Neurontin) 300 mg BID PO Last administered on 07/02/16 08:13; Start 07/01/16 at 21:00 Levothyroxine Sodium (Synthroid) 125 mcg DAILY@06 PO Last administered on 05:09; Start 07/02/16 at 06:00 Dextrose (D50w (Vial) Inj) 25 ml UNSCH PRN IV PUSH HYPOGLYCEMIA-SEE COMMENTS; Start 07/01/16 at 16:45 Glucagon (Glucagon Inj) 1 mg UNSCH PRN OTHER HYPOGLYCEMIA-SEE COMMENTS; Start 07/01/16 at 16:45 Insulin Aspart (NovoLOG SUPPLEMENTAL SCALE) 1 ACHS SLIDING SCALE SQ Last administered on 07/02/16t 05:14; Start 07/01/16 at 21:00 Pneumococcal Polyvalent Vaccine (Pneumovax-23 Inj) 25 mcg ONCE ONCE IM Last administered on 07/02/16t 08:17; Start 07/02/16 at 10:00; Stop 07/02/16 at 10:01 ; Status DC Bupivacaine HCl/ Epinephrine Bitart (Marcaine-Epi Pf 0.25% Inj) 30 ml STK-MED ONCE .ROUTE ; Start 07/02/16 at 10:57; Stop 07/02/16 at 10:58; Status DC Bupivacaine HCl/ Epinephrine Bitart (Marcaine-Epi Pf 0.25% Inj) 30 ml STK-MED ONCE .ROUTE ; Start 07/02/16 at 10:57; Stop 07/02/16 at 10:58; Status DC Bupivacaine HCl/ Epinephrine Bitart (Marcaine-Epi Pf 0.25% Inj) 30 ml STK-MED ONCE .ROUTE ; Start 07/02/16 at 10:58; Stop 07/02/16 at 10:59; Status DC Bupivacaine HCl/ Epinephrine Bitart (Sensorcaine-Epinephrine 0.25% Inj) 50 ml STK-MED ONCE .ROUTE ; Start 07/02/16 at 10:59; Stop 07/02/16 at 11:00; Status DC Acetaminophen (Ofirmev Inj) 1,000 mg STK-MED ONCE IV ; Start 07/02/16 at 11:19; Stop 07/02/16 at 11:20; Status DC Famotidine (Pepcid Inj) 20 mg STK-MED ONCE .ROUTE ; Start 07/02/16 at 11:20; Stop 07/02/16 at 11:21; Status DC A/P Assessment and Plan 65-year-old male presented with abdominal pain and nausea/ vomiting Abdominal pain/nausea/vomiting most likely secondary to acute cholecystitis. -Improving. -CT scan the abdomen/pelvis and abdominal ultrasound suggests acute cholecystitis. -General Surgeon already consulted and recommended a laparoscopic cholecystectomy. -Patient is going down for surgery today. -Continue with Zosyn. -continue with supportive care with IV fluids, antiemetics, and pain control. Elevated blood pressure -Patient has no history of hypertension. Elevated blood pressure most likely due to pain. He was given PRN blood pressure medication in the ED which did not help his blood pressure. Patient then had better pain control in which his blood pressure improved drastically. -Continue to improve for pain control. Type 1 diabetes, bilateral carpal tunnel syndrome -Patient is on insulin sliding scale. -I am unsure why patient is on Lasix when he doesn't have any lower extremity edema or has no history of CHF. Will hold Lasix due to emesis and concerning for dehydration. Surgical Clearance -EKG showed sinus rhythm with no ST elevation or depression. Shows fascicular block. No prior EKG comparison. -Patient is asymptomatic and able to walk many miles without any symptoms. -He did well prior under general anesthesia. -Patient is medically clear for surgery. Discharge Planning Patient is scheduled for surgery today. Temi Martinez MD July 02, 2016 11:24
[2016-07-02] MEDS ORDERED: MIDAZOLAM HCL 2 MG/2 ML VIAL ONE (11:46)
[2016-07-02] MEDS ORDERED: DICLOFENAC SODIUM 37.5 MG/ML VIAL IV PUSH ONE (11:50)
[2016-07-02] MEDS ORDERED: fentaNYL CITRATE 250 MCG/5 ML AMP ONE (11:50)
[2016-07-02] MEDS ORDERED: ONDANSETRON HCL 4 MG/2 ML VIAL IV PUSH ONE (12:00)
[2016-07-02] MEDS ORDERED: LACTATED RINGER'S 1000 ML INJ 1,000 ML IV ONE (12:00)
[2016-07-02] MEDS ORDERED: PROPOFOL 200 MG/20 ML AMP IV ONE (12:00)
[2016-07-02] MEDS ORDERED: NEOSTIGMINE 3 MG/3 ML SYR IV ONE (12:00)
--- NOTE | 2016-07-02 13:26 | PD.OP ---
cc: Ozzy Bedolla MD Operative Report Date of Surgery: July 02, 2016 Preoperative Diagnosis: (1) Cholecystitis Postoperative Diagnosis: (1) Cholecystitis Procedure: Laparoscopic cholecystectomy Anesthesia: HELENEA Surgeon: Ozzy Bedolla [employer] Mold Tester(s): Saranya Ragland. Operation and Findings: Complications: None apparent EBL:10cc Operative findings: The patient had an inflamed and edematous gallbladder. There was some leakage of bile and small black stones which was all suctioned free. Procedure in detail: The patient was taken to the operating room and placed in the supine position. General endotracheal anesthesia was induced. The abdomen was prepped and draped in usual sterile fashion and a surgical timeout was performed to verify correct patient procedure and site. Appropriate perioperative antibiotics were administered. Local anesthetic was injected in the skin and subcutaneous tissue superior to the umbilicus and a 5 mm incision performed. The abdomen was entered using the Optiview 5 mm trocar with direct laparoscopic visualization. The abdomen was then insufflated to 15 mmHg with CO2 gas which the patient tolerated well. Next a 12 mm port was placed in the epigastrium and two 5 mm ports in the right upper quadrant and right lateral abdomen. The patient was placed in reverse Trendelenburg position and turned slightly to the left. Attention was turned to the right upper quadrant and the dome of the gallbladder was grasped and retracted cephalad. The infundibulum was retracted laterally to expose Calot's triangle. Blunt dissection and judicious use of electrocautery was used to expose the cystic duct and the cystic artery directly entering the gallbladder. The gallbladder wall was very edematous and required decompression with a decompression needle. Cloudy bile stained fluid was removed about 90 cc. There was a lot of induration at the infundibulum of the gallbladder. There was some spillage of bile and small black stones which were suctioned free. Two clips were placed proximally on each of these structures and one distally and they were transected. The gallbladder was then removed from the liver bed using electrocautery. The left upper quadrant was suctioned and irrigated. Hemostasis was achieved. 3 g of Shorty was placed in the gallbladder fossa. The gallbladder was then removed from the abdomen using an Endo Catch bag. The clips were in place on the cystic duct and cystic artery stumps with no bleeding or bile leakage. At this point, the abdomen was allowed to desufflate and trochars were removed. The fascia at the 12 mm port site was closed with 0 Vicryl suture. Skin was closed with subcuticular 4-0 Monocryl as well as Dermabond. The patient tolerated the procedure well and was extubated and taken to PACU in stable condition. All sponge and instrument counts were correct. Ozzy Bedolla MD July 02, 2016 13:26
[2016-07-02] MEDS ORDERED: OXYC1TAB63 PO (13:27)
[2016-07-02] MEDS ORDERED: oxyCODONE/ACETAMINOPHEN 5 MG/325 MG TAB PO PRN (13:30)
[2016-07-02] MEDS ORDERED: HYDROmorphone HCL PF 1 MG/ML VIAL IV PUSH PRN (13:30)
[2016-07-02] MEDS ORDERED: DO NOT ADM ANY ANTICOAGULANT DRUGS PRN (14:00)
[2016-07-02 15:50] VITALS: BP 121/61; PULSE 78; RESP 20; TEMP 98.6; O2SAT 93
[2016-07-02 21:00] VITALS: BP 154/70; PULSE 72; RESP 16; TEMP 100.2; O2SAT 94
[2016-07-02] MEDS: ATORVASTATIN 80 MG TAB PO SCH (22:09)
[2016-07-03] VITALS (9 sets, daily range): BP systolic 147–176; BP diastolic 66–77; PULSE 74–81; RESP 17–20; TEMP 99.7–100.9; O2SAT 93–96
[2016-07-03] MEDS: ACETAMINOPHEN 325 MG TAB PO PRN ×2 (01:47→05:53)
[2016-07-03] MEDS: SODIUM CHLOR 0.9% 1000 ML INJ 1,000 ML IV SCH ×3 (01:51→15:23)
[2016-07-03] MEDS: LEVOTHYROXINE SODIUM 125 MCG TAB PO SCH (05:53)
[2016-07-03] MEDS: INSULIN ASPART SUPPLEMENTAL SCALE SQ SCH ×4 (06:02→22:14)
[2016-07-03 06:21] LABS: HEMATOCRIT 26.5 % (39.0-51.0); MEAN CELL VOLUME 95.7 FL (80.0-100.0); MEAN CORPUSCULAR HEMOGLOBIN 32.1 PG (27.0-34.0); MEAN CORPUSCULAR HGB CONC 33.5 % (32.0-36.0); PLATELET COUNT 152 TH/MM3 (150-450); RED BLOOD COUNT 2.76 MIL/MM3 (4.50-5.90); RED CELL DISTRIBUTION WIDTH 14.7 % (11.6-17.2); REVIEW FLAG FINAL; WHITE BLOOD COUNT 10.3 TH/MM3 (4.0-11.0)
[2016-07-03 06:40] LABS: BICARBONATE 28.6 MEQ/L (21.0-32.0); POTASSIUM 3.9 MEQ/L (3.5-5.1)
--- NOTE | 2016-07-03 07:41 | HHI.PR ---
Subjective Subjective Notes He feels well and is tolerating some diet but had fevers overnight. Objective Vitals/I&O Vital Signs Date Time Temp Pulse Resp B/P Pulse Ox O2 Delivery O2 Flow Rate FiO2 07/03/16 05:00 99.7 75 18 162/72 94 07/02/16 15:15 Nasal Cannula 2 Labs Laboratory Tests Test 07/03/16 05:24 White Blood Count 10.3 Red Blood Count 2.76 Hemoglobin 8.9 Hematocrit 26.5 Mean Corpuscular Volume 95.7 Mean Corpuscular Hemoglobin 32.1 Mean Corpuscular Hemoglobin 33.5 Concent Red Cell Distribution Width 14.7 Platelet Count 152 Mean Platelet Volume 7.7 Sodium Level 138 Potassium Level 3.9 Chloride Level 102 Carbon Dioxide Level 28.6 Anion Gap 7 Blood Urea Nitrogen 25 Creatinine 0.97 Estimat Glomerular Filtration 78 Rate Random Glucose 304 Calcium Level 7.8 Radiology Last Impressions Abdomen/Pelvis CT 07/01/16 0907 Signed Impressions: Service Date/Time: Friday, July 01, 2016 10:39 - CONCLUSION: 1. Gallbladder is dilated and contains wall thickening and cholelithiasis. Gallbladder sonogram may be warranted. 2. Mild intrahepatic biliary ductal dilatation. 3. Bilateral nonobstructing renal calculi. Thomas García MD Gall Bladder Ultrasound 07/01/16 0000 Signed Impressions: Service Date/Time: Friday, July 01, 2016 11:37 - CONCLUSION: 1. Distended gallbladder and cholelithiasis. 2. Mild intrahepatic biliary ductal dilatation. Thomas García MD Narrative Exam NAD Abd: mild distention, inc c/d/i, nontender A/P Assessment and Plan POD 1 s/p lap danisha for acute cholecystitis. Stable. Febrile. Check LFTs. Start levaquin and flagyl. Would not discharge until fevers resolve and we make sure no post op issues such as stone in common bile duct. Ozzy Bedolla MD July 03, 2016 07:41
[2016-07-03 08:27] LABS: INDIRECT BILIRUBIN 0.7 MG/DL (0.0-0.8); TOTAL BILIRUBIN ADULT 1.1 MG/DL (0.2-1.0)
[2016-07-03] MEDS: SODIUM CHLORIDE 0.9% FLUSH 10 ML FLUSH IV FLUSH SCH ×2 (09:00→22:03)
[2016-07-03] MEDS: GABAPENTIN 300 MG CAP PO SCH ×2 (09:19→22:03)
[2016-07-03] MEDS: metroNIDAZOLE 500 MG TAB PO SCH ×2 (09:19→17:35)
[2016-07-03] MEDS: DAPSONE 25 MG TAB PO SCH (09:19)
[2016-07-03] MEDS: ASPIRIN EC 81 MG TABEC PO SCH (09:19)
[2016-07-03] MEDS: CETIRIZINE HCL 10 MG TAB PO SCH (09:19)
[2016-07-03] MEDS: LEVOFLOXACIN 750 MG TAB PO SCH (09:19)
[2016-07-03] MEDS: DAPSONE 100 MG TAB PO SCH (09:19)
--- NOTE | 2016-07-03 12:46 | HHI.PR ---
Subjective Remarks Follow-up for abdominal pain, nausea vomiting Patient stated that he is tolerating by mouth intake well. He had low-grade fevers overnight. Otherwise he denies any abdominal pain. Patient very anxious to go home right now. Objective Vitals Vital Signs Date Time Temp Pulse Resp B/P Pulse Ox O2 Delivery O2 Flow Rate FiO2 07/03/16 12:19 99.9 80 20 158/68 93 07/03/16 08:59 100.1 76 20 147/66 96 07/03/16 05:00 99.7 75 18 162/72 94 07/03/16 01:15 100.9 78 18 160/71 94 07/02/16 21:00 100.2 72 16 154/70 94 07/02/16 15:50 98.6 78 20 121/61 93 07/02/16 15:15 98.1 71 20 162/69 97 Nasal Cannula 2 07/02/16 15:00 71 18 166/77 98 Nasal Cannula 2 07/02/16 14:30 71 23 129/60 98 Nasal Cannula 2 07/02/16 14:15 70 17 139/60 97 Nasal Cannula 2 07/02/16 14:00 66 19 161/67 99 Nasal Cannula 2 07/02/16 13:45 70 22 145/63 98 Nasal Cannula 2 07/02/16 13:31 98.1 74 12 154/64 84 Nasal Cannula 4 07/02/16 13:31 70 12 99 Nasal Cannula 4 I/O 07/02/16 07/02/16 07/02/16 07/03/16 07/03/16 07/03/16 07:00 15:00 23:00 07:00 15:00 23:00 Intake Total 1500 ml 1530 ml 480 ml Output Total 30 ml Balance 1470 ml 1530 ml 480 ml Intake Oral 300 ml 530 ml 480 ml IV Total 1000 ml Other 1200 ml Output Estimated Blood Loss 30 ml # Voids 2 2 2 2 # Bowel Movements 0 Result Diagram: 07/03/1652307/03/16523 Objective Remarks GENERAL: in NAD SKIN: Warm and dry. HEAD: Normocephalic. EYES: No scleral icterus. No injection or drainage. NECK: Supple, trachea midline. No JVD or lymphadenopathy. CARDIOVASCULAR: Regular rate and rhythm without murmurs, gallops, or rubs. RESPIRATORY: Breath sounds equal bilaterally. No accessory muscle use. GASTROINTESTINAL: Abdomen soft, non-tender, nondistended. Medications and IVs Current Medications Ondansetron HCl 4 mg 4 mg ONCE ONCE IVP Last administered on 07/01/16 09:19; Start 07/01/16 at 09:15; Stop 07/01/16 at 09:16; Status DC Sodium Chloride (NS 1000 ml Inj) 1,000 ml @ 1,000 mls/hr Q1H IV Last administered on 07/01/16 09:20; Start 07/01/16 at 09:07; Stop 07/01/16 at 10:06; Status DC Sodium Chloride (NS Flush) 2 ml UNSCH PRN IV FLUSH FLUSH AFTER USING IV ACCESS ; Start 07/01/16 at 09:15; Stop 07/01/16 at 17:02; Status DC Hydromorphone HCl (Dilaudid Pf Inj) 1 mg ONCE ONCE IVS Last administered on 09:19; Start 07/01/16 at 09:15; Stop 07/01/16 at 09:16; Status DC Al Hydrox/Mg Hydrox/Simethicone (Mag-Al Plus Susp Liq) 30 ml ONCE ONCE PO Last administered on 07/01/16 09:20; Start 07/01/16 at 09:15; Stop 07/01/16 at 09: 16; Status DC Lidocaine HCl (Xylocaine 2% Viscous) 15 ml ONCE ONCE PO Last administered on 09:20; Start 07/01/16 at 09:15; Stop 07/01/16 at 09:16; Status DC Iohexol (Omnipaque 350 Inj) 93 ml STK-MED ONCE IV Last administered on 10:52; Start 07/01/16 at 10:52; Stop 07/01/16 at 10:53; Status DC Hydromorphone HCl 0.5 mg 0.5 mg ONCE ONCE IV PUSH Last administered on 11:09; Start 07/01/16 at 11:00; Stop 07/01/16 at 11:02; Status DC Piperacillin Sod/ Tazobactam Sod 50 ml @ 100 mls/hr ONCE ONCE IV Last administered on 07/01/16 11:27; Start 07/01/16 at 11:15; Stop 07/01/16 at 11:44; Status DC Sodium Chloride (NS 1000 ml Inj) 1,000 ml @ 100 mls/hr Q10H IV Last administered on 07/03/16 05:56; Start 07/01/16 at 12:00 Sodium Chloride (NS Flush) 2 ml UNSCH PRN IV FLUSH FLUSH AFTER USING IV ACCESS ; Start 07/01/16 at 11:30 Sodium Chloride (NS Flush) 2 ml BID IV FLUSH Last administered on 07/02/16 22: 16; Start 07/01/16 at 21:00 Acetaminophen (Tylenol) 650 mg Q4H PRN PO TEMP > 100.4 Last administered on 05:53; Start 07/01/16 at 12:00 Ondansetron HCl (Zofran Inj) 4 mg Q6H PRN IVP NAUSEA OR VOMITING Last administered on 07/02/16 08:03; Start 07/01/16 at 11:30 Naloxone HCl 0.4 mg 0.4 mg UNSCH PRN IV SEE LABEL COMMENTS; Start 07/01/16 at 11 :30 Piperacillin Sod/ Tazobactam Sod (Zosyn 3.375 Gm Premix) 50 ml @ 100 mls/hr Q6H IV Last administered on 07/02/16 11:28; Start 07/01/16 at 17:00; Stop 07/02 at 13:24; Status DC Labetalol HCl (Trandate Inj) 20 mg ONCE ONCE IV PUSH Last administered on 13:08; Start 07/01/16 at 13:00; Stop 07/01/16 at 13:01; Status DC Enalaprilat (Vasotec Inj) 1.25 mg Q6H PRN IV PUSH SBP>180, DBP>110 Last administered on 07/01/16 13:47; Start 07/01/16 at 13:00 Hydralazine HCl (Apresoline Inj) 20 mg Q4H PRN IV PUSH SYS BP GREATER THAN 180 MMHG; Start 07/01/16 at 13:00 Hydromorphone HCl (Dilaudid Pf Inj) 2 mg Q3HR PRN IV PUSH PAIN 5-10 Last administered on 07/02/16 02:39; Start 07/01/16 at 15:00; Stop 07/02/16 at 13:24 ; Status DC Aspirin (Ecotrin Ec) 81 mg DAILY PO Last administered on 07/03/16 09:19; Start 07/02/16 at 09:00 Atorvastatin Calcium (Lipitor) 80 mg HS PO Last administered on 07/02/16 22:09 ; Start 07/01/16 at 21:00 Cetirizine HCl (ZyrTEC) 10 mg DAILY PO Last administered on 07/03/16 09:19; Start 07/02/16 at 09:00 Dapsone (Dapsone) 25 mg DAILY PO Last administered on 07/03/16 09:19; Start at 09:00 Dapsone (Dapsone) 100 mg DAILY PO Last administered on 07/03/16 09:19; Start 07/02/16 at 09:00 Gabapentin (Neurontin) 300 mg BID PO Last administered on 07/03/16 09:19; Start 07/01/16 at 21:00 Levothyroxine Sodium (Synthroid) 125 mcg DAILY@06 PO Last administered on 05:53; Start 07/02/16 at 06:00 Dextrose (D50w (Vial) Inj) 25 ml UNSCH PRN IV PUSH HYPOGLYCEMIA-SEE COMMENTS; Start 07/01/16 at 16:45 Glucagon (Glucagon Inj) 1 mg UNSCH PRN OTHER HYPOGLYCEMIA-SEE COMMENTS; Start 07/01/16 at 16:45 Insulin Aspart (NovoLOG SUPPLEMENTAL SCALE) 1 ACHS SLIDING SCALE SQ Last administered on 07/03/16 06:02; Start 07/01/16 at 21:00 Pneumococcal Polyvalent Vaccine (Pneumovax-23 Inj) 25 mcg ONCE ONCE IM Last administered on 07/02/16 08:17; Start 07/02/16 at 10:00; Stop 07/02/16 at 10:01 ; Status DC Bupivacaine HCl/ Epinephrine Bitart (Marcaine-Epi Pf 0.25% Inj) 30 ml STK-MED ONCE .ROUTE ; Start 07/02/16 at 10:57; Stop 07/02/16 at 10:58; Status DC Bupivacaine HCl/ Epinephrine Bitart (Marcaine-Epi Pf 0.25% Inj) 30 ml STK-MED ONCE .ROUTE ; Start 07/02/16 at 10:57; Stop 07/02/16 at 10:58; Status DC Bupivacaine HCl/ Epinephrine Bitart (Marcaine-Epi Pf 0.25% Inj) 30 ml STK-MED ONCE .ROUTE ; Start 07/02/16 at 10:58; Stop 07/02/16 at 10:59; Status DC Bupivacaine HCl/ Epinephrine Bitart (Sensorcaine-Epinephrine 0.25% Inj) 50 ml STK-MED ONCE .ROUTE Last administered on 07/02/16 12:16; Start 07/02/16 at 10: 59; Stop 07/02/16 at 11:00; Status DC Acetaminophen (Ofirmev Inj) 1,000 mg STK-MED ONCE IV Last administered on 11:27; Start 07/02/16 at 11:19; Stop 07/02/16 at 11:20; Status DC Famotidine (Pepcid Inj) 20 mg STK-MED ONCE .ROUTE Last administered on 11:20; Start 07/02/16 at 11:20; Stop 07/02/16 at 11:21; Status DC Midazolam HCl (Versed Inj) 2 mg STK-MED ONCE .ROUTE Last administered on 11:47; Start 07/02/16 at 11:46; Stop 07/02/16 at 11:47; Status DC Diclofenac Sodium (Dyloject Inj) 37.5 mg STK-MED ONCE IV PUSH ; Start 07/02/16 at 11:50; Stop 07/02/16 at 11:51; Status DC Fentanyl Citrate (fentaNYL INJ) 250 mcg STK-MED ONCE .ROUTE ; Start 07/02/16 at 11:50; Stop 07/02/16 at 11:51; Status DC Acetaminophen (Ofirmev Inj) 1,000 mg STK-MED ONCE IV ; Start 07/02/16 at 11:50; Stop 07/02/16 at 11:51; Status DC Oxycodone/ Acetaminophen (Percocet 5-325 Mg) 1 tab Q4H PRN PO PAIN SCALE 1 TO 5; Start 07/02/16 at 13:30 Oxycodone/ Acetaminophen (Percocet 5-325 Mg) 2 tab Q4H PRN PO PAIN SCALE 6 TO 10; Start 07/02/16 at 13:30 Hydromorphone HCl (Dilaudid Pf Inj) 0.5 mg Q4H PRN IV PUSH BREAKTHROUGH PAIN; Start 07/02/16 at 13:30 Miscellaneous Information ALL NURSING DEPARTME... UNSCH PRN .XX SEE LABEL COMMENTS; Start 07/02/16 at 14:00; Stop 07/03/16 at 13:59 Levofloxacin (Levaquin) 750 mg DAILY PO Last administered on 07/03/16 09:19; Start 07/03/16 at 09:00 Metronidazole (Flagyl) 500 mg Q8H PO Last administered on 07/03/16 09:19; Start 07/03/16 at 08:00 A/P Assessment and Plan 65-year-old male presented with abdominal pain and nausea/ vomiting Acute cholecystitis. -CT scan the abdomen/pelvis and abdominal ultrasound suggests acute cholecystitis. -General Surgeon already consulted s/p laparoscopic cholecystectomy. -patient having low grade fever per GS r/o CBD obstruction so will get an MRCP. Elevated blood pressure -Patient has no history of hypertension. Elevated blood pressure most likely due to pain. He was given PRN blood pressure medication in the ED which did not help his blood pressure. Patient then had better pain control in which his blood pressure improved drastically. -Continue to improve for pain control. Type 1 diabetes, bilateral carpal tunnel syndrome -Patient is on insulin sliding scale. -I am unsure why patient is on Lasix when he doesn't have any lower extremity edema or has no history of CHF. Will hold Lasix due to emesis and concerning for dehydration. Surgical Clearance -EKG showed sinus rhythm with no ST elevation or depression. Shows fascicular block. No prior EKG comparison. -Patient is asymptomatic and able to walk many miles without any symptoms. -He did well prior under general anesthesia. -Patient is medically clear for surgery. Discharge Planning Patient had low-grade fever overnight per general surgery patient needs to be afebrile before discharge. will get MRCP to r/o CBD obstruction. Temi Martinez MD July 03, 2016 12:46 afebrile before discharge. Temi Martinez MD July 03, 2016 12:46
[2016-07-03] MEDS: oxyCODONE/ACETAMINOPHEN 5 MG/325 MG TAB PO PRN (17:35)
--- NOTE | 2016-07-03 18:52 | RADRPT ---
EXAM DATE/TIME: 07/03/2016 17:45 [facility] COMPARISON: CT ABDOMEN & PELVIS W CONTRAST, July 01, 2016, 10:39. INDICATIONS : Obstruction. Post cholecystectomy yesterday. MEDICAL HISTORY : Diabetes mellitus type 2. SURGICAL HISTORY : Cholecystectomy. ENCOUNTER: Subsequent ACUITY: 2 day PAIN SCORE: 3/10 LOCATION: abdomen. TECHNIQUE: Multiplanar, multisequence magnetic resonance imaging of the abdomen was performed. High-resolution 3D dataset was utilized to reconstruct maximum-intensity projection (MIP) images. FINDINGS: Patient reportedly status post cholecystectomy. There is some fluid in the gallbladder fossa. There i s minimal pleural fluid present. The biliary tree is nondilated throughout. Common duct diameter does not exceed 4-5 mm. Pancreatic duct is normal in appearance. There are no focal liver lesions identif ied. Spleen is mildly enlarged. No focal splenic masses. Kidneys and adrenals are benign in appearanc e. CONCLUSION: There is some fluid in the gallbladder fossa post cholecystectomy. Minimal pleural effusion. Carson Weiss MD on July 03, 2016 at 18:46 Board Certified Radiologist. This report was verified electronically.
[2016-07-03] MEDS: ATORVASTATIN 80 MG TAB PO SCH (22:03)
[2016-07-04] VITALS: BP 149/67; PULSE 82; RESP 18; TEMP 98.7; O2SAT 94
[2016-07-04] MEDS: metroNIDAZOLE 500 MG TAB PO SCH ×2 (00:06→07:56)
[2016-07-04] MEDS: SODIUM CHLOR 0.9% 1000 ML INJ 1,000 ML IV SCH ×2 (01:23→11:23)
[2016-07-04 04:00] VITALS: BP 183/78; PULSE 53; RESP 17; TEMP 98.1; O2SAT 94
[2016-07-04] MEDS: oxyCODONE/ACETAMINOPHEN 5 MG/325 MG TAB PO PRN (05:52)
[2016-07-04] MEDS: LEVOTHYROXINE SODIUM 125 MCG TAB PO SCH (05:52)
[2016-07-04 06:00] VITALS: BP 173/74
[2016-07-04] MEDS: INSULIN ASPART SUPPLEMENTAL SCALE SQ SCH ×2 (06:05→11:00)
--- NOTE | 2016-07-04 07:26 | HHI.PR ---
Subjective Subjective Notes He feels well, tolerating diet. MRCP shows some fluid at gallbladder fossa, no other problems. Objective Vitals/I&O Vital Signs Date Time Temp Pulse Resp B/P Pulse Ox O2 Delivery O2 Flow Rate FiO2 07/04/16 04:00 98.1 53 17 183/78 94 07/03/16 21:32 Nasal Cannula 2.00 Radiology Last Impressions Abdomen/Pelvis CT 07/01/16 0907 Signed Impressions: Service Date/Time: Friday, July 01, 2016 10:39 - CONCLUSION: 1. Gallbladder is dilated and contains wall thickening and cholelithiasis. Gallbladder sonogram may be warranted. 2. Mild intrahepatic biliary ductal dilatation. 3. Bilateral nonobstructing renal calculi. Thomas García MD Gall Bladder Ultrasound 07/01/16 0000 Signed Impressions: Service Date/Time: Friday, July 01, 2016 11:37 - CONCLUSION: 1. Distended gallbladder and cholelithiasis. 2. Mild intrahepatic biliary ductal dilatation. Thomas García MD Narrative Exam NAD Abd: mild distention, inc c/d/i, nontender A/P Assessment and Plan POD 2 s/p lap danisha for acute cholecystitis. Low grade fevers until last night. No temps overnight. He is feeling well. MRCP basically normal. Tolerating diet. I am ok with discharge with levaquin/ flagyl. F/u with me in two weeks. Ozzy Bedolla MD July 04, 2016 07:26
[2016-07-04] MEDS ORDERED: LEVA750T PO (07:27)
[2016-07-04] MEDS ORDERED: METR-1 PO (07:27)
[2016-07-04] MEDS: LEVOFLOXACIN 750 MG TAB PO SCH (07:56)
[2016-07-04] MEDS: CETIRIZINE HCL 10 MG TAB PO SCH (07:56)
[2016-07-04] MEDS: SODIUM CHLORIDE 0.9% FLUSH 10 ML FLUSH IV FLUSH SCH (07:56)
[2016-07-04] MEDS: ASPIRIN EC 81 MG TABEC PO SCH (07:56)
[2016-07-04] MEDS: DAPSONE 25 MG TAB PO SCH (07:56)
[2016-07-04] MEDS: DAPSONE 100 MG TAB PO SCH (07:56)
[2016-07-04] MEDS: GABAPENTIN 300 MG CAP PO SCH (07:56)
[2016-07-04 08:00] VITALS: BP 152/65; PULSE 81; RESP 18; TEMP 99.6; O2SAT 93
[2016-07-04 08:03] VITALS: PULSE 78
[2016-07-04 12:00] VITALS: BP 151/67; PULSE 88; RESP 19; TEMP 97.8; O2SAT 94
--- NOTE | 2016-07-04 12:09 | HHI.DCPOC ---
Discharge Care Plan Diagnosis: (1) Cholecystitis Goals to Promote Your Health * To prevent worsening of your condition and complications * To maintain your health at the optimal level Directions to Meet Your Goals Take your medications as prescribed Follow your dietary instruction Follow activity as directed Keep your appointments as scheduled Take your immunizations and boosters as scheduled If your symptoms worsen call your PCP, if no PCP go to Urgent Care Center or Emergency Room Smoking is Dangerous to Your Health. Avoid second hand smoke Call the 24-hour hour crisis hotline for domestic abuse at Temi Martinez MD July 04, 2016 12:09
--- NOTE | 2016-07-06 21:23 | HHI.DS ---
Discharge Summary Admission Date July 01, 2016 at 11:58 Discharge Date: July 04, 2016 Admitting Diagnosis acute cholecystitis (1) Cholecystitis ICD Code: K81.9 Diagnosis: Principal (2) Elevated blood pressure reading ICD Code: R03.0 Diagnosis: Secondary Procedures see hospital course Brief History - From Admission This is a 65-year-old male past no history of type 1 diabetes insulin-dependent and hyperlipidemia who presented with epigastric pain and nausea vomiting. Patient stated that epigastric pain started on Thursday in which it lasted for 5 hours and resolved on its own. He stated that he did not think it was associated with food at all. He does stated last night he woke up in the middle night with severe abdominal pain. Then at 5:00 this morning he started vomiting yellow substance. Patient stated that he had 2 slices of pizza yesterday. Patient has never had this pain before. Deny any fevers or chills. Patient had EGD/colonoscopy about 3 years ago he stated that it was normal. Noted that patient is on Lasix I asked patient if he has history of congestive heart failure. Patient stated he has no history of congestive heart failure and he also denies any history of cardiovascular disease. Patient stated that he is able to walk for many miles without any shortness of breathing, chest pain, palpitation or lightheadedness or dizziness. He stated that he's been under general anesthesia in the past with no complications. CBC/BMP: 07/03/16 0524 07/03/16 0524 Imaging Last Impressions Cholangiopancreatography MRI 07/03/16 0000 Signed Impressions: Service Date/Time: June 17:45 - CONCLUSION: There is some fluid in the gallbladder fossa post cholecystectomy. Minimal pleural effusion. Carson Weiss MD Abdomen/Pelvis CT 07/01/16 0907 Signed Impressions: Service Date/Time: Friday, July 01, 2016 10:39 - CONCLUSION: 1. Gallbladder is dilated and contains wall thickening and cholelithiasis. Gallbladder sonogram may be warranted. 2. Mild intrahepatic biliary ductal dilatation. 3. Bilateral nonobstructing renal calculi. Thomas F. Tocci, MD Gall Bladder Ultrasound 07/01/16 0000 Signed Impressions: Service Date/Time: Friday, July 01, 2016 11:37 - CONCLUSION: 1. Distended gallbladder and cholelithiasis. 2. Mild intrahepatic biliary ductal dilatation. Thomas García MD PE at Discharge GENERAL: in NAD SKIN: Warm and dry. HEAD: Normocephalic. EYES: No scleral icterus. No injection or drainage. NECK: Supple, trachea midline. No JVD or lymphadenopathy. CARDIOVASCULAR: Regular rate and rhythm without murmurs, gallops, or rubs. RESPIRATORY: Breath sounds equal bilaterally. No accessory muscle use. GASTROINTESTINAL: Abdomen soft, non-tender, nondistended. Pt update on day of discharge f/u for acute cholecystitis patient very anxious to go. He is tolerating PO intake. + BM and urinating. He has been afebrile at least 24 hours. Denied any pain. Hospital Course 65-year-old male presented with abdominal pain and nausea/ vomiting Acute cholecystitis. -CT scan the abdomen/pelvis and abdominal ultrasound suggests acute cholecystitis. -General Surgeon already consulted s/p laparoscopic cholecystectomy on 2016. -patient having low grade fever after surgery so MRCP was done to r/o CBD which was negative. Fever then resolved. -patient was pain free, tolerating PO intake at discharge. Elevated blood pressure -Patient has no history of hypertension. Elevated blood pressure most likely due to pain. He was given PRN blood pressure medication in the ED which did not help his blood pressure. Patient then had better pain control in which his blood pressure improved drastically. -Continue to improve for pain control. Type 1 diabetes, bilateral carpal tunnel syndrome -Patient is on insulin sliding scale. -I am unsure why patient is on Lasix when he doesn't have any lower extremity edema or has no history of CHF. Will hold Lasix due to emesis and concerning for dehydration. Pt Condition on Discharge: Good Discharge Disposition: Discharge Home Discharge Time: <= 30 minutes Discharge Instructions DIET: Follow Instructions for: Heart Healthy Diet Activities you can perform: See Additionl Instruction Other Activity Instructions: no lifting >5lbs until cleared by your surgeon. Follow up Referrals: PCP Follow-up - 1 Week Surgical - 2 Weeks with Ozzy Bedolla MD New Medications: Levofloxacin (Levaquin) 750 Mg Tab 750 MG PO DAILY infection #5 TAB Metronidazole (Flagyl) 500 Mg Tab 500 MG PO Q8H infection #15 TAB Oxycodone-Acetaminophen (Oxycodone-Acetaminophen) 5-325 mg Tab 1-2 TAB PO Q4H PRN PAIN #25 TAB Continued Medications: Aspirin DR (Aspir-81) 81 Mg Tabdr 81 MG PO DAILY Atorvastatin (Atorvastatin) 80 Mg Tab 80 MG PO HS Cholesterol Management #30 Ref 0 TAB Cetirizine (Cetirizine) 10 Mg Tab 10 MG PO DAILY Allergies Ref 0 TAB Dapsone (Dapsone) 100 Mg Tab 100 MG PO DAILY #30 Ref 0 TAB Dapsone (Dapsone) 25 Mg Tab 25 MG PO DAILY #30 Ref 0 TAB Furosemide (Furosemide) 20 Mg Tab 20 MG PO DAILY #30 Ref 0 TAB Gabapentin (Gabapentin) 300 Mg Cap 300 MG PO BID #60 Ref 0 CAP Insulin Aspart Inj (Novolog Flexpen Inj) 300 Unit/3 Ml Pen 4 UNITS SQ AC BREAKFAST Blood Sugar Management #1 Ref 0 PEN Insulin Aspart Inj (Novolog Flexpen Inj) 300 Unit/3 Ml Pen 6 UNITS SQ AC LUNCH Blood Sugar Management #1 Ref 0 PEN Insulin Aspart Inj (Novolog Flexpen Inj) 300 Unit/3 Ml Pen 8 UNITS SQ AC DINNER Blood Sugar Management #1 Ref 0 PEN Levothyroxine (Levothyroxine) 125 Mcg Tab 125 MCG PO DAILY Thyroid #30 Ref 0 TAB Temi Martinez MD July 06, 2016 21:23
== END 2016-07-04 12:45 | disposition home or self-care (01) | DRG 418 ==
LOC: NEPE 09:02 → NEDA 11:58 → HOCA 15:34
PROVIDERS: ADMIT Family Medicine; ATTEND Family Medicine
PROC: 0FT44ZZ Resection of Gallbladder, Percutaneous Endoscopic Approach (ICD-10-PCS; principal; 2016-07-02 11:49)
DX: K80.12 Calculus of gallbladder with acute and chronic cholecystitis without obstruction (principal); K90.41 Non-celiac gluten sensitivity; E10.9 Type 1 diabetes mellitus without complications; Z79.4 Long term (current) use of insulin; R03.0 Elevated blood-pressure reading, without diagnosis of hypertension; R50.9 Fever, unspecified; E78.5 Hyperlipidemia, unspecified; G56.00 Carpal tunnel syndrome, unspecified upper limb; Z23 Encounter for immunization
CPT/HCPCS: 74177; 74181; 76377; 76705; 80048; 80053; 80076; 82948; 83605; 83690; 84484; 85025; 85027; 87640; 87641; 88304; 90732; 93005; 96361; 96365; 96375; 96376; J0131; J1130; J1170; J1815; J2250; J2405; J2543; J2710; J3010; J7030; J7120; Q9967